=== PATIENT | female | born 1990 | race Caucasian/White ===

== ENCOUNTER 2019-01-30 04:08 | Inpatient (IN) | payer OTHER, SELFPAY ==
[2016-10-15 10:31] VITALS: BMI 21.9
[2019-01-30 04:49] VITALS: BMI 30.5
[2019-01-30 05:10] LABS: Absolute Lymphocyte Count 2.29 X10^3/ul (0.83-4.51); Absolute Neutrophil Count 15.2 X10^3/uL (2.0-7.7); Basophil# 0.04 X10^3/uL; Basophil% 0.2 % (0-1); Eosinophil# 0.07 X10^3/uL; Eosinophils% 0.4 % (0-5); Hematocrit 33.5 % (37-47); Hemoglobin 10.9 g/dl (12.0-15.0); Lymphocyte # 2.29 X10^3/ul (4.0); Lymphocyte % 12.4 % (19-41); Mean Corp Hgb Conc 32.5 g/gl (32-36); Mean Corpuscular Hgb 27.3 pg (27.0-32.0); Mean Platelet Vol. 11.2 fl (6.2-12.0); Monocyte# 0.71 X10^3/uL; Monocyte% 3.8 % (0-10); Neutrophil # 15.15 X10^3/uL (2.7-7.7); Neutrophil % 82.1 % (47-70); POSITIVE COUNT NO; POSITIVE DIFFERENTIAL NO; POSITIVE MORPHOLOGY NO; Platelet Count 230 K/mm3 (150-450); RBC Distribution Width CV 14.3 % (11.6-14.6); Red Blood Count 3.99 M/mm3 (4.2-5.4); White Blood Count 18.5 K/mm3 (4.4-11.0)
--- NOTE | 2019-01-30 05:45 | HP.PCM_ITS ---
History Date of Admission: 01/30/19 Final REBA: 02/12/19 Final REBA Source: LMP Gestational age: 38 Weeks and 1 Days History of this : This is a 28 year-old, G [1], P [0], at 38 weeks gestational age. Contractions started last night around 11pm every 10 minutes. They progressed to every 5 minutes and became more uncomfortable. Presented to L&D and was 5cm upon admission. Rapid progression to 10 cm and desire to push. Allergies No Known Allergies Allergy (Verified 10/15/16 10:34) Home Medications: Home Medications Acyclovir 1 tab PO TID 01/30/19 Prenatabs FA 1 tab PO DAILY 01/30/19 Smoking Status: Never smoker Alcohol: None Heart Tracin, minimal variability, accels, no decels Category 2 TOCO: every 2 minutes, strong Complete/100%/0 History Past Pregnancies: Past Pregnancies Delivery Date Name GA/Weeks Outcome Route Weight Gender Labor Length Anesthesia Delivery Location Provider FOB Labs: A positive Rubella Immune HBsAG negative RPR negative HIV negative GC/CT negative Urine tox screen negative GBS [id number] GCT 100, normal Expected Delivery Method: Spontaneous Vaginal Review of Systems Constitutional: Denies: Chills, Fever, Weight Change Cardiovascular: Denies: Chest Pain, Palpitations Respiratory: Denies: Cough, Shortness of breath at rest, Sputum production Gastrointestinal: Reports: Abdominal Pain Genitourinary: Denies: Dysuria Psychiatric: Denies: Anxiety, Depression, Homicidal Ideations, Suicidal Ideations Physical Exam General: Alert, Oriented x3 HEENT: Atraumatic, Normocephalic Cardiovascular: Regular rate, Regular Rhythm, No murmurs Lungs: Clear to auscultation, Normal air movement, No rhonchi, No wheeze Abdomen: Gravid ELECTRICAL INSTRUMENT REPAIRER: Normal external genitalia Estimated gestational size: Appropriate for gestational size Presentation: Cephalic Cervix Dilation (cm): 10 Station: 0 Effacement (%): 100 Assessment/Plan This is a 28 year-old, G [1], P [0], at 38 weeks gestational age. A:Active Labor Category 2 FHT Genital HSV P: 1) Patient complete and anesthesia at bedside for epidural. Patient undecided if she wants to proceed with procedure. Reviewed risks, benefits and alternatives and patient would like to continue without epidural. Instructed this would be the recommended time if she did want an epidural as once she starts pushing it will be more difficult to place. She voiced understanding and declines. Would like to continue with nitrous. 2) Admit to L&D, Routine orders, IV saline lock 3) Continuous EFM due to category 2 tracing and minimal variability 4) notified of patient status. 5) Declines LARC . 6) Patient taking HSV prophylaxis, denies any active lesions. 7) GBS negative.
[2019-01-30] MEDS: Lactated Ringers 1,000 ML 50 ML IV (05:55)
[2019-01-30] MEDS: Oxytocin 30 units/NS 500 ml 30 UNITS/500 ML IV.SOLN 334 UNITS IV (08:36)
[2019-01-30] MEDS: Oxytocin 30 units/NS 500 ml 30 UNITS/500 ML IV.SOLN 167 UNITS IV (09:06)
--- NOTE | 2019-01-30 09:13 | PCM.OPRPT ---
Problem List (1) Vaginal delivery Status: Acute (2) First degree perineal laceration Status: Acute (3) Laceration of labia minora Status: Acute (4) Genital HSV Status: Acute Vaginal Delivery Maternal Presentation: Active Labor Amniotic Membrane Rupture Type: Spontaneous Amniotic Fluid Description: Clear Final REBA: 02/12/19 Final REBA Source: LMP Gestational age: 38 Weeks and 1 Days Date of Procedure: 01/30/19 Pre-Operative Diagnosis: Active Labor Post-Operative Diagnosis: Surgery/ Procedure Performed: Spontaneous Vaginal Delivery Type of Anesthesia: Local with 1% lidocaine Description of Procedure: Nitrous oxide for pain relief. heart tones down to 70's, near delivery with +4 station. Nitrous discontinued. Positional changes and 02 via face mask applied. Topography Technician called to room for delivery. with no analgesia of viable male over 1st degree perineal laceration and bilateral labial lacerations. head delivered and body forthcoming. CAN x1, delivered through. Infant delivered and placed on maternal abdomen skin to skin. Mouth and nares suctioned for secretions, stimulated and strong cry. Cord clamped and cut after delayed cord clamping by FOB. APGARS 8,9. Placenta delivered with maternal effort, intact, 3 vessel cord via sri. Pitocin started for active 3rd stage management. Perineum inspected and revealed 1st degree perineal laceration repaired with Lidocaine and 3.0 vicryl and bilateral labial lacerations repaired with 3.0 vicryl. Patient tolerated well. Fundus firm. Vaginal sweep completed. Sponge and instrument count correct. Mom and baby stable. Family bonding well. Planning to breastfeed. notified of delivery. Presentation: Vertex Placental Delivery Description: Spontaneous Placenta Disposition: [facility] Cord Vessel Description: 3 Vessels Cord Gases drawn per routine: ABG, VBG Cord Entanglement: Around neck x 1, loose Estimated Blood Loss: 350 ml A gender: Male (1 minute): 8 (5 minute): 9 Episiotomy Description: None Laceration: Perineal Extension/lac - bilateral labial, 1st degree Medications given after delivery: IV Pitocin
--- NOTE | 2019-01-30 09:16 | OP.PCM_ITS ---
Problem List (1) Vaginal delivery Status: Acute (2) First degree perineal laceration Status: Acute (3) Laceration of labia minora Status: Acute (4) Genital HSV Status: Acute Vaginal Delivery Maternal Presentation: Active Labor Amniotic Membrane Rupture Type: Spontaneous Amniotic Fluid Description: Clear Final REBA: 02/12/19 Final REBA Source: LMP Gestational age: 38 Weeks and 1 Days Date of Procedure: 01/30/19 Pre-Operative Diagnosis: Active Labor Post-Operative Diagnosis: Surgery/ Procedure Performed: Spontaneous Vaginal Delivery Type of Anesthesia: Local with 1% lidocaine Description of Procedure: Nitrous oxide for pain relief. heart tones down to 70's, near delivery wi th +4 station. Nitrous discontinued. Positional changes and 02 via face mask applied. Oxyacetylene Torch Operator called to room for delivery. with no analgesia of viable male infant over 1st degree perineal laceration and bilateral labial lacerations. Infant head delivered and body forthcoming. CAN x1, delivered through. delivered and placed on maternal abdomen skin to skin. Mouth and nares suctioned for secretions, stimulated and strong cry. Cord clamped and cut after delayed cord clamping by FOB. APGARS 8,9. Placenta delivered with maternal effort, intact, 3 vessel cord via sri. Pitocin started for active 3rd stage management. Perineum inspected and revealed 1st degree perineal laceration repaired with Lidocaine and 3.0 vicryl and bilateral labial lacerations repaired with 3.0 vicryl. Patient tolerated well. Fundus firm. Vaginal sweep completed. Sponge and instrument count correct. Mom and baby stable. Family bonding well. Planning to breastfeed. notified of delivery. Presentation: Vertex Placental Delivery Description: Spontaneous Placenta Disposition: [facility] Cord Vessel Description: 3 Vessels Cord Gases drawn per routine: ABG, VBG Cord Entanglement: Around neck x 1, loose Estimated Blood Loss: 350 ml A gender: Male (1 minute): 8 (5 minute): 9 Episiotomy Description: None Laceration: Perineal Extension/lac - bilateral labial, 1st degree Medications given after delivery: IV Pitocin
[2019-01-30] MEDS: 0.9% Saline Lock 10 ML Syringe IV (10:03)
[2019-01-30] MEDS: Ibuprofen 600 MG Tablet PO ×2 (10:10→16:40)
[2019-01-30 12:00] VITALS: BP 121/75; PULSE 105; RESP 15; TEMP 36.9
[2019-01-30] MEDS: Acetaminophen 500 MG Tablet 1000 MG PO ×2 (13:00→21:56)
[2019-01-30 16:30] VITALS: BP 109/68; PULSE 87; RESP 16; TEMP 37.2
[2019-01-30 20:10] VITALS: BP 112/76; PULSE 85; RESP 18; TEMP 37.2; O2SAT 100
[2019-01-31 00:50] VITALS: BP 114/64; PULSE 87; RESP 20; TEMP 36.8
[2019-01-31 04:00] VITALS: BP 109/62; PULSE 79; RESP 18; TEMP 36.4
[2019-01-31] MEDS: Ibuprofen 600 MG Tablet PO ×2 (05:49→11:58)
[2019-01-31 06:04] LABS: Hematocrit 28.5 % (37-47); Hemoglobin 9.4 g/dl (12.0-15.0); Mean Corpuscular Hgb 27.8 pg (27.0-32.0); Mean Corpuscular Volume 84.3 fL (81-99); Mean Platelet Vol. 10.2 fl (6.2-12.0); Platelet Count 186 K/mm3 (150-450); RBC Distribution Width CV 14.6 % (11.6-14.6); Red Blood Count 3.38 M/mm3 (4.2-5.4); White Blood Count 18.1 K/mm3 (4.4-11.0)
[2019-01-31 06:15] LABS: Scan Indicated on CBC? Y/N NO
[2019-01-31 08:00] VITALS: BP 114/71; PULSE 82; RESP 18; TEMP 36.9
[2019-01-31] MEDS: Senna/Docusate Sodium 1 Tablet PO (09:44)
--- NOTE | 2019-01-31 11:45 | PCM.PN.OB ---
Patient Problems: Active and Suspected Problems Vaginal delivery (Acute) First degree perineal laceration (Acute) Laceration of labia minora (Acute) Genital HSV (Acute) Subjective: Doing well per patient and nursing staff. Ambulating and taking PO without difficulty. Voiding and passing flatus, taking stool softener. Pain controlled. without difficulty. Denies any headaches, vision changes, chest pain, SOB, increased vaginal bleeding or leg pain. Planning D/C home tomorrow. Baby to get circumcision today. - Physical Exam General: Alert, Oriented x3, Cooperative HEENT: Atraumatic, Normocephalic Neck: Trachea Midline Lungs: Clear to auscultation, Normal air movement, No rhonchi, No wheeze Cardiovascular: Regular rate, Regular Rhythm, No murmurs Abdomen: Bowel Sounds Present, Soft, - - Fundus firm 3 below U Extremities: No edema Neurological: Deep Tendon Reflexes 2+/4 and Symmetrical Psych/Mental Status: Normal Affect, Appropriate Vital Signs Temp Pulse Resp BP Pulse Ox 98.4 F 82 18 114/71 100 01/31/19 08:00 01/31/19 08:00 01/31/19 08:00 01/31/19 08:00 01/30/19 20:10 Oxygen Delivery Method Room Air Weight: 167 lb 3.2 oz Body Mass Index (BMI) 30.5 Intake and Output for Last 24 Hours 01/29/19 01/30/19 01/31/19 23:59 23:59 23:59 Output Total 1000 / 1000 Balance -1000 / -1000 Laboratory Tests Past 24 Hrs 01/31/19 05:43 WBC 18.1 H RBC 3.38 L Hgb 9.4 L Hct 28.5 L MCV 84.3 MCH 27.8 MCHC 33.0 RDW 14.6 RDW Differential 45.0 H Plt Count 186 MPV 10.2 Medical Necessity - Tobacco Use Smoking Status: Never smoker Assessment/Plan All Active Problems Vaginal delivery (Acute) First degree perineal laceration (Acute) Laceration of labia minora (Acute) Genital HSV (Acute) A:PPD #1 Blood loss anemia P: 1) Routine care. 2) Hgb decreased to 9.4, patient asymptomatic. Will start Ferrous Sulfate 325mg PO BID. 3) instructions reviewed. 4) Planning D/C home tomorrow.
[2019-01-31 14:00] VITALS: BP 115/69; PULSE 84; RESP 18; TEMP 36.8
[2019-01-31] MEDS: Ferrous Sulfate 325 MG Tablet PO ×2 (14:33→18:23)
[2019-01-31 20:31] VITALS: BP 120/77; PULSE 104; RESP 16; TEMP 36.8
[2019-02-01 01:18] VITALS: BP 112/75; PULSE 85; RESP 18; TEMP 36.8
[2019-02-01] MEDS: Ibuprofen 600 MG Tablet PO ×2 (01:18→09:53)
[2019-02-01 08:00] VITALS: BP 116/78; PULSE 80; RESP 16; TEMP 36.6
[2019-02-01] MEDS: Senna/Docusate Sodium 1 Tablet PO (09:53)
--- NOTE | 2019-02-01 10:05 | PCM.DCVAG ---
Discharge Diet: No Restrictions Discharge Activity: May Drive, May Shower May resume sexual activity in: 4-6 weeks Weight Bearing Status: Weight bearing as tolerated Additional Instructions: If you experience any of the following, contact your healthcare provider. Bleeding that soaks a pad every hour for 2 hours Fever 100.4 or higher Unrelieved incision or abdominal pain Swelling, redness, discharge or bleeding from your incision or episiotomy site Your incision begins to separate Problems urinating (including inability to urinate or burning while urinating). Visual changes Severe headache Flu-like symptoms Pain or redness in one of both of your breasts Pain, warmth, tenderness or swelling in your legs, especially the calf area Frequent nausea and vomiting Symptoms of depression or anxiety If you experience any of the following, call 911 or go to the nearest Emergency Room. Chest pain Problems breathing Seizure activity Partial or complete paralysis of a body part, slurred speech, weakness or drooping of the face, or a sudden inability to walk or hold your balance Allergies/Adverse Reactions: Allergies No Known Allergies Allergy (Verified 10/15/16 10:34) Medications to take at Discharge Prenatabs FA 1 tab PO DAILY 01/30/19 Ferrous Sulfate 325 mg PO DAILY #30 tab 02/01/19 The following prescriptions were given: Ferrous Sulfate 325 mg PO DAILY #30 tab Primary Care Physician: Nic Hill MD [Primary Care Provider] - Test Results: Test results from this visit will be discussed in further detail at your follow-up appointment, if applicable.
--- NOTE | 2019-02-01 10:06 | DCINST_ITS ---
Discharge Diet: No Restrictions Discharge Activity: May Drive, May Shower May resume sexual activity in: 4-6 weeks Weight Bearing Status: Weight bearing as tolerated Additional Instructions: If you experience any of the following, contact your healthcare provider. * Bleeding that soaks a pad every hour for 2 hours * Fever 100.4 or higher * Unrelieved incision or abdominal pain * Swelling, redness, discharge or bleeding from your incision or episiotomy site * Your incision begins to separate * Problems urinating (including inability to urinate or burning while urinating). * Visual changes * Severe headache * Flu-like symptoms * Pain or redness in one of both of your breasts * Pain, warmth, tenderness or swelling in your legs, especially the calf area * Frequent nausea and vomiting * Symptoms of depression or anxiety If you experience any of the following, call 911 or go to the nearest Emergency Room. * Chest pain * Problems breathing * Seizure activity * Partial or complete paralysis of a body part, slurred speech, weakness or drooping of the face, or a sudden inability to walk or hold your balance Allergies/Adverse Reactions: Allergies No Known Allergies Allergy (Verified 10/15/16 10:34) Medications to take at Discharge Prenatabs FA 1 tab PO DAILY 01/30/19 Ferrous Sulfate 325 mg PO DAILY #30 tab 02/01/19 The following prescriptions were given: Ferrous Sulfate 325 mg PO DAILY #30 tab Primary Care Physician: Nic Hill MD [Primary Care Provider] - Test Results: Test results from this visit will be discussed in further detail at your follow- up appointment, if applicable.
--- NOTE | 2019-02-01 10:06 | PCM.PN.OB ---
Patient Problems: Active and Suspected Problems Vaginal delivery (Acute) First degree perineal laceration (Acute) Laceration of labia minora (Acute) Genital HSV (Acute) Subjective: No complaints - Physical Exam General: Alert, Oriented x3 Abdomen: Soft, Non Tender, Non-Distended - ff mid & below umb Extremities: No Calf Tenderness Neurological: Cranial nerves II-XII grossly intact Vital Signs Temp Pulse Resp BP Pulse Ox 98.3 F 85 18 112/75 100 02/01/19 01:18 02/01/19 01:18 02/01/19 01:18 02/01/19 01:18 01/30/19 20:10 Oxygen Delivery Method Room Air Weight: 167 lb 3.2 oz Body Mass Index (BMI) 30.5 Intake and Output for Last 24 Hours 01/30/19 01/31/19 02/01/19 23:59 23:59 23:59 Output Total 1000 / 1000 Balance -1000 / -1000 Medical Necessity - Tobacco Use Smoking Status: Never smoker Assessment/Plan All Active Problems Vaginal delivery (Acute) First degree perineal laceration (Acute) Laceration of labia minora (Acute) Genital HSV (Acute) PPD#2 Anemia - d/c home on iron
== END 2019-02-01 11:40 | disposition home or self-care (01) | DRG 807 ==
PROVIDERS: Advanced Practice Midwife; Admitting Provider Obstetrics & Gynecology; Visit Provider Obstetrics & Gynecology
DX: O98.32 Other infections with a predominantly sexual mode of transmission complicating childbirth (principal); A60.00 Herpesviral infection of urogenital system, unspecified; O69.81X0 Labor and delivery complicated by cord around neck, without compression, not applicable or unspecified; O90.81 Anemia of the puerperium; D50.0 Iron deficiency anemia secondary to blood loss (chronic); O70.0 First degree perineal laceration during delivery; Z3A.38 38 weeks gestation of pregnancy; Z37.0 Single live birth
CPT/HCPCS: 59025; 59050; 85025; 85027; 86850; 86900; 99218; J7120; A4216; G0378

== ENCOUNTER 2021-01-13 00:30 | Inpatient (IN) | payer OTHER, SELFPAY ==
[2021-01-13] VITALS (24 sets, daily range): BP systolic 95–144; BP diastolic 56–78; PULSE 73–93; RESP 14–18; TEMP 36.1–37; O2SAT 88–100; BMI 32.3
[2021-01-13] MEDS: Lactated Ringers 1,000 ML 50 ML IV (00:45)
[2021-01-13 00:53] LABS: Absolute Lymphocyte Count 2.97 X10^3/uL (0.83-4.51); Basophil# 0.06 X10^3/uL; Basophil% 0.5 % (0-1); Eosinophil# 0.13 X10^3/uL; Hematocrit 36.7 % (37-47); Hemoglobin 11.8 g/dL (12.0-15.0); Lymphocyte # 2.97 X10^3/ul (0.83-4.51); Lymphocyte % 22.6 % (19-41); Mean Corp Hgb Conc 32.2 g/dL (32-36); Mean Corpuscular Hgb 27.9 pg (27.0-32.0); Mean Corpuscular Volume 86.8 fL (81-99); Monocyte# 0.79 X10^3/uL; NRBC Flagged by Analyzer 0 % (0-5); Neutrophil # 9.02 X10^3/uL (2.7-7.7); Neutrophil % 68.5 % (47-70); Platelet Count 254 K/mm3 (150-450); RBC Distribution Width CV 15.2 % (11.6-14.6); RBC Distribution Width SD 47.2 fl (35.1-43.9); Red Blood Count 4.23 M/mm3 (4.2-5.4); White Blood Count 13.2 K/mm3 (4.4-11.0)
--- NOTE | 2021-01-13 01:08 | HP.PCM.OB_ITS ---
HPI - General General Date of Admission: 01/13/21 HPI Narrative MAGDALENA LACY, is a 30 F who presents at 40w2d in active labor. Presents with contractions every 4 minutes that started around 2245. No leakage of fluid or vaginal bleeding. complicated by genital herpes, prophylaxis since 36 weeks and no outbreaks during . [facility] Home Medications Prenatabs FA 1 tab PO DAILY 01/30/19 [History Last Taken 01/29/19] acyclovir 200 mg PO TID 01/13/21 [History Last Taken 01/12/21 21:00] Allergy/AdvReac Type Severity Reaction Status Date / Time No Known Allergies Allergy Verified 01/13/21 02:47 Surgical History (Updated 01/13/21 @ 02:53 by Luz Wade) History of surgery Social History Smoking Status: Never smoker History Elective abortions Hx Para 1 Spontaneous abortions Hx # Term Pregnancies Ectopic pregnancies Hx # Pregnancies Multiple births # of living children NST FHR Rate Baby A Baseline: 125 Variability:: Minimal Accelerations:: 15 x 15 Decelerations:: None FHR Category:: Category II Uterine Activity:: Every 2 minutes, strong ROS Constitutional Constitutional: Reports systems reviewed and no addt'l complaints, except as documented; Denies headache(s) Eyes Eyes: Denies acute decrease in peripheral vision, blurry vision or change in vision ENT HEENT: Reports systems reviewed and no addt'l complaints, except as documented Cardiovascular Cardiovascular: Denies chest pain or dizziness Respiratory/Chest Respiratory/Chest: Denies cough, dyspnea, dyspnea on exertion, shortness of breath at rest or shortness of breath with exertion Gastrointestinal Gastrointestinal: Denies abdominal pain, diarrhea, nausea or vomiting Genitourinary Genitourinary: Denies abdominal discomfort or movement Musculoskeletal Musculoskeletal: Denies limited range of motion Integumentary Integumentary: Reports systems reviewed and no addt'l complaints, except as documented Neurologic Neurologic: Reports systems reviewed and no addt'l complaints, except as documented Psychiatric Psychiatric: Reports systems reviewed and no addt'l complaints, except as documented Endocrine Endocrinology: Reports systems reviewed and no addt'l complaints, except as doc umented Hematologic/Lymphatic Hematologic/Lymphatic: Reports systems reviewed and no addt'l complaints, except as documented Allergic/Immunologic Allergic/Immunologic: Reports systems reviewed and no addt'l complaints, except as documented Vital Signs Vital Signs Vital Signs: 01/13/21 00:37 01/13/21 00:38 Temperature 97.0 F L Temperature Source Temporal Pulse Rate 82 Blood Pressure 121/78 H BP Systolic 121 BP Diastolic 78 Pulse Ox 98 Physical Exam Narrative GBS negative RPR negative Rubella negative HBsAG negative HepC negative A positive HIV negative Tox screen negative GC/CT negative 1hr GCT abnormal, 3hr GTT normal Const alert and oriented x3 General Appearance: cooperative Orientation / Consciousness: awake, oriented to person, oriented to place and oriented to time Exam Limitations: no limitations HEENT normocephalic Head and Scalp: normal to inspection, normocephalic and atraumatic Face and Sinus: normal facial exam Eyes General Eye: normal appearance of both eyes Neck full ROM Chest Chest: symmetrical chest wall rise Resp normal respiratory effort and normal air movement Auscultation: clear to auscultation bilaterally Cardio regular rate, regular rhythm, S1 normal heart sound, S2 normal heart sound, no murmurs, no rub, no gallops and no clicks GI normal to inspection, nondistended, normoactive bowel sounds and non-tender appearance of the vagina normal Bladder / Kidney Exam: no CVA tenderness Manual OB Exam: estimated gestational size appropriate, presentation cephalic, dilated 6, effaced 90, station -1 and other AROM for moderate amount of clear fluid Back/Spine normal ROM Extremity normal to inspection and full ROM Skin no rashes or lesions noted Neuro oriented x3, CN's II-XII intact bilaterally and moves all extremities Sensorium / Orientation: awake, alert and oriented to person Motor Exam: clonus absent Deep Tendon Reflexes: Rt Patellar (L4): 2+ and Lt Patellar (L4): 2+ Assessment & Plan (1) Active labor at term: (2) Genital HSV: PLAN: 1) Admit to labor and delivery 2) IV and routine labs 3) COVID 19 test 4) GBS negative 5) Planning unmedicated , may have pain management upon request 6) Continuous EFM 7) notified of patient status and admission
[2021-01-13] MEDS: 0.9% Saline Lock 10 ML Syringe IV ×2 (01:23→04:16)
[2021-01-13] MEDS: Oxytocin 30 units/NS 500 ml 30 UNITS/500 ML IV.SOLN 334 UNITS IV (01:59)
--- NOTE | 2021-01-13 03:18 | EX.PCM.OBRPT ---
Assessment & Plan (1) Vaginal delivery: (2) Genital HSV: (3) Second degree perineal laceration: Vaginal Delivery Maternal Presentation Maternal Presentation: Active Labor Operative Information Date of Procedure: 01/13/21 Pre-Operative Diagnosis: Active Labor at Term Post-Operative Diagnosis: Type of Anesthesia: Local with 1% Lidocaine Estimated Blood Loss: 300 ml Findings Description of Procedure: Progressed to completed with strong urge to push. Unmedicated of viable female infant over second degree perineal laceration. APGARS 8,9. Infant head delivered ZACHARY and body forthcoming with maternal effort. Delivered and placed on maternal abdomen, strong cry. Mouth and nares suctioned for secretions. Pitocin started for active 3rd stage management. Placenta delivered with expression, intact, 3 vessel. Perineum inspected and revealed second degree perineal laceration, repaired with 1% lidocaine and 3.0 vicryl. Well approximated and hemostasis achieved. Fundus firm, vaginal sweep completed by me. sponge and instrument count correct, EBL 300ml. Mom and baby stable. initiated. Family bonding well. notified of delivery. Presentation: Vertex and ZACHARY Amniotic Membrane Rupture Type: Artificial Amniotic Fluid Description: Clear Placental Delivery Description: Expressed Placenta Disposition: [facility] Cord Vessel Description: 3 Vessels Cord Entanglement: None A Gender: Female (1 minute): 8 (5 minute): 9 Delayed Cord Clamping: Yes Post Vaginal Delivery Medications Given After Delivery: IV Pitocin Episiotomy Description: None Laceration: Perineal Extension/lac and 2nd degree Complication Complications: None
[2021-01-13] MEDS: Ibuprofen 600 MG Tablet PO ×4 (04:16→23:48)
[2021-01-13] MEDS: Acyclovir 200 MG Capsule PO ×3 (06:42→21:33)
[2021-01-13] MEDS: Acetaminophen 500 MG Tablet 1000 MG PO ×2 (08:33→21:02)
[2021-01-13] MEDS: Prenatal Vits Tablet 1 TABLET PO (12:34)
--- NOTE | 2021-01-13 19:47 | NURSING ---
report given to sang WHYTE. that rn to take over for this shift.
[2021-01-14 03:24] VITALS: BP 110/75; PULSE 88; RESP 18; TEMP 36.3
[2021-01-14 03:25] VITALS: BP 110/75; PULSE 88
[2021-01-14] MEDS: Acyclovir 200 MG Capsule PO (05:57)
[2021-01-14 06:06] LABS: Hematocrit 31.8 % (37-47); Mean Corp Hgb Conc 31.4 g/dL (32-36); Mean Corpuscular Volume 85.9 fL (81-99); Mean Platelet Vol. 10.7 fl (6.2-12.0); Platelet Count 197 K/mm3 (150-450); RBC Distribution Width CV 15.1 % (11.6-14.6); RBC Distribution Width SD 47.3 fl (35.1-43.9); White Blood Count 14.2 K/mm3 (4.4-11.0)
[2021-01-14] MEDS: Ibuprofen 600 MG Tablet PO (08:36)
[2021-01-14] MEDS: Senna/Docusate Sodium 1 Tablet PO (08:37)
[2021-01-14 09:29] VITALS: BP 123/61; PULSE 86
[2021-01-14 09:33] VITALS: BP 126/61; PULSE 86; RESP 18; TEMP 36.5
--- NOTE | 2021-01-14 12:13 | PCM.DC ---
Discharge Instructions Diet Discharge Diet: No restrictions Activity Discharge Activity: Return to Normal Activity, May Drive, May Shower and May Take a Tub Bath May resume sexual activity in: 6 weeks Weight Bearing Status: Full weight bearing Dressing / Incision Call your doctor if you observe: Fever of 101 or Higher, Inability to urinate, Inability to have a bowel movement, Using more than one pad per hour, Shortness of breath, Chest pain, Increased palpitations (irregular heartbeat), Calf discomfort and Uncontrolled pain Follow Up Care Please Follow Up With: Amy Lerner When: 2 week virtual visit and 6 week visit Test Results: Test results from this visit will be discussed in further detail at your follow-up appointment, if applicable. Discharge Plan Admission Admit Date/Time: 01/13/21 00:30 Primary Reason for Your Visit: Vaginal Delivery Attending Provider: Amy Lerner Primary Care Provider: Nic Hill Instructions Patient Instructions: After a Vaginal , at Home Discharge Orders/Prescriptions Prescriptions: New acetaminophen 500 mg Tablet 500 mg PO Q8H PRN PRN (Reason: pain) Qty: 30 RF: 0 ibuprofen 600 mg Tablet 600 mg PO Q6H PRN PRN (Reason: Pain Score 1-10) Qty: 30 RF: 0 Continued Prenatabs FA 1 tab PO DAILY RF: 0 acyclovir 200 mg Capsule 200 mg PO TID RF: 0 Referrals / Follow Up: Nic Hill MD [Primary Care Provider] - Disposition Disposition (needs filled in before D/C Order can be placed): Home, self care
--- NOTE | 2021-01-14 12:21 | PCM.PROGNOTE ---
Subjective Subjective: Doing well per patient and nursing staff. Ambulating and taking PO without difficulty. without difficulty. Pain controlled. Voiding and passing flatus. Denies any headache, visual changes, chest pain, shortness of breath, increased vaginal bleeding, or leg pain. Planning D/C home today. Objective Data Objective Data Vital Signs: Vital Signs Temp Pulse Resp BP Pulse Ox 97.7 F L 86 18 126/61 H 97 01/14/21 09:33 01/14/21 09:33 01/14/21 09:33 01/14/21 09:33 01/13/21 04:29 Oxygen Delivery Method Room Air Weight: 176 lb 9.6 oz Body Mass Index (BMI) 32.3 Intake & Output: Intake and Output for Last 24 Hours 01/12/21 01/13/21 01/14/21 23:59 23:59 23:59 Intake Total 579.82 / 579.82 Output Total 1100 / 1100 Balance -520.18 / -520.18 Lab / Micro Data Result Diagrams: 01/14/21 05:55 Labs: Laboratory Results - last 24 hr 01/14/21 05:55 WBC 14.2 H RBC 3.70 L Hgb 10.0 L Hct 31.8 L MCV 85.9 MCH 27.0 MCHC 31.4 L RDW Std Deviation 47.3 H RDW Coeff of Ela 15.1 H Plt Count 197 MPV 10.7 Micro: Microbiology 01/13/21 00:50 Mucosa - Nose SARS-CoV-2 Antigen (Rapid) - Final Physical Exam Const alert and oriented x3 General Appearance: cooperative Orientation / Consciousness: awake, oriented to person, oriented to place and oriented to time Exam Limitations: no limitations HEENT normocephalic Head and Scalp: normal to inspection, normocephalic and atraumatic Face and Sinus: normal facial exam Eyes General Eye: normal appearance of both eyes Neck full ROM Chest Chest: symmetrical chest wall rise Resp normal respiratory effort and normal air movement Auscultation: clear to auscultation bilaterally Cardio regular rate, regular rhythm, S1 normal heart sound, S2 normal heart sound, no murmurs, no rub, no gallops and no clicks GI normal to inspection, nondistended, normoactive bowel sounds and non-tender GI Narrative: Fundus firm 2 below U appearance of the vagina normal Bladder / Kidney Exam: no CVA tenderness Back/Spine normal ROM Extremity normal to inspection and full ROM Skin no rashes or lesions noted Neuro oriented x3, CN's II-XII intact bilaterally and moves all extremities Sensorium / Orientation: awake, alert and oriented to person Motor Exam: clonus absent Deep Tendon Reflexes: Rt Patellar (L4): 2+ and Lt Patellar (L4): 2+ Assessment & Plan Assessment/Plan (1) Second degree perineal laceration: (2) Vaginal delivery: PLAN: 1) Routine PP and care 2) Pain control with OTC Tylenol and Ibuprofen 3) Follow up in 2 weeks and 6 weeks 4) D/C home today.
== END 2021-01-14 12:33 | disposition home or self-care (01) | DRG 807 ==
LOC: WPOUT 00:33 → WP 00:33
PROVIDERS: Admitting Provider Advanced Practice Midwife; Referring Provider Advanced Practice Midwife; Visit Provider Advanced Practice Midwife
DX: O98.32 Other infections with a predominantly sexual mode of transmission complicating childbirth (principal); Z37.0 Single live birth; A60.00 Herpesviral infection of urogenital system, unspecified; O70.1 Second degree perineal laceration during delivery; Z3A.40 40 weeks gestation of pregnancy
CPT/HCPCS: 59025; 59050; 85025; 85027; 86850; 86900; 86901; 87426; 99218; J7120; A4216; G0378

== ENCOUNTER 2024-11-29 11:46 | Inpatient (IN) | payer OTHER, SELFPAY ==
[2024-11-29] VITALS (42 sets, daily range): BP systolic 98–134; BP diastolic 56–90; PULSE 80–117; RESP 15–16; TEMP 36.3–36.6; O2SAT 81–100; BMI 30.9
[2024-11-29 11:17] LABS: ROM Internal Control Test YES-OK TO RESULT pt. (Internal QC)
[2024-11-29 11:19] LABS: ROM Patient Test POSITIVE (Negative); Record Kit Lot#, ROM+ K3294
[2024-11-29] MEDS: Lactated Ringers 1,000 ML 50 ML IV (12:00)
[2024-11-29 12:40] LABS: Absolute Lymphocyte Count 2.94 X10^3/uL (0.83-4.51); Absolute Neutrophil Count 11.6 X10^3/uL (2.0-7.7); Basophil# 0.07 X10^3/uL; Basophil% 0.4 % (0-1); Eosinophil# 0.11 X10^3/uL; Eosinophils% 0.7 % (0-5); Hematocrit 37.8 % (37-47); Hemoglobin 12.5 g/dL (12.0-15.0); Lymphocyte # 2.94 X10^3/ul (0.83-4.51); Lymphocyte % 18.8 % (19-41); Mean Corp Hgb Conc 33.1 g/dL (32-36); Mean Corpuscular Hgb 29.5 pg (27.0-32.0); Mean Corpuscular Volume 89.2 fL (81-99); Mean Platelet Vol. 10.2 fl (6.2-12.0); Monocyte# 0.82 X10^3/uL; Monocyte% 5.2 % (0-10); NRBC Flagged by Analyzer 0 % (0-5); Neutrophil # 11.56 X10^3/uL (2.7-7.7); Neutrophil % 74.1 % (47-70); Platelet Count 308 K/mm3 (150-450); RBC Distribution Width CV 13.9 % (11.6-14.6); RBC Distribution Width SD 44.9 fl (35.1-43.9); Red Blood Count 4.24 M/mm3 (4.2-5.4); White Blood Count 15.6 K/mm3 (4.4-11.0)
[2024-11-29] MEDS: Oxytocin 15 Units/NS 250ml 15 UNITS/250 ML IV.SOLN 2 UNITS IV (12:47)
[2024-11-29 16:03] LABS: Syphilis Antibodies Nonreactive (Nonreactive)
--- NOTE | 2024-11-29 17:29 | PCM.HP.OB ---
HPI - General General Date of Admission: 11/29/24 HPI Narrative MAGDALENA LACY, is a 34 F who presents with at 39w0d with spontaneous rupture of membranes about 10pm. No vaginal bleeding, good movement, irregular mild contractions. Maternal Data Information REBA Calculator Estimated Delivery Date Method Current WG Current Estimate 12/06/24 Manual 39w 1d 39w0d at admission PFSH PFSH Home Medications ?Medication ?Instructions ?Recorded ?Last Taken ?Type Prenatabs FA 1 tab PO DAILY Check with primary 01/30/19 11/28/24 History doctor acyclovir 200 mg capsule 200 mg PO TID herpes 01/13/21 11/28/24 History acetaminophen 500 mg tablet 500 mg PO Q8H PRN PRN pain #30 tabs 01/14/21 Unknown Rx Held on 11/29/24. Instructions: Order Completed Allergy/AdvReac Type Severity Reaction Status Date / Time No Known Allergies Allergy Verified 11/29/24 12:26 Surgical History History of surgery Social History Smoking Status: Never smoker History Elective abortions Hx Para 2 Spontaneous abortions Hx # Term Pregnancies Ectopic pregnancies Hx # Pregnancies Multiple births # of living children NST FHR Rate Baby A Baseline: 140 Variability:: Moderate Accelerations:: 15 x 15 Decelerations:: None FHR Category:: Category I Uterine Activity:: Irregular ROS Constitutional Constitutional: Reports systems reviewed and no addt'l complaints, except as documented; Denies headache(s) Eyes Eyes: Denies acute decrease in peripheral vision, blurry vision or change in vision ENT HEENT: Reports systems reviewed and no addt'l complaints, except as documented Cardiovascular Cardiovascular: Denies chest pain or dizziness Respiratory/Chest Respiratory/Chest: Denies cough, dyspnea, dyspnea on exertion, shortness of breath at rest or shortness of breath with exertion Gastrointestinal Gastrointestinal: Denies abdominal pain, diarrhea, nausea or vomiting Genitourinary Genitourinary: Denies abdominal discomfort Musculoskeletal Musculoskeletal: Denies limited range of motion Integumentary Integumentary: Reports systems reviewed and no addt'l complaints, except as documented Neurologic Neurologic: Reports systems reviewed and no addt'l complaints, except as documented Psychiatric Psychiatric: Reports systems reviewed and no addt'l complaints, except as documented Endocrine Endocrinology: Reports systems reviewed and no addt'l complaints, except as documented Hematologic/Lymphatic Hematologic/Lymphatic: Reports systems reviewed and no addt'l complaints, except as documented Allergic/Immunologic Allergic/Immunologic: Reports systems reviewed and no addt'l complaints, except as documented Vital Signs Vital Signs Vital Signs: 11/29/24 10:32 11/29/24 10:32 11/29/24 10:32 Temperature Temperature Source Pulse Rate 116 H 117 H Respiratory Rate Blood Pressure 129/90 H BP Systolic 129 BP Diastolic 90 Pulse Ox 11/29/24 10:32 11/29/24 10:32 11/29/24 10:32 Temperature Temperature Source Temporal Pulse Rate Respiratory Rate 16 Blood Pressure BP Systolic BP Diastolic Pulse Ox 100 11/29/24 10:32 11/29/24 11:57 11/29/24 11:57 Temperature 97.5 F L Temperature Source Temporal Pulse Rate Respiratory Rate 16 Blood Pressure BP Systolic BP Diastolic Pulse Ox 11/29/24 11:57 11/29/24 11:58 11/29/24 11:58 Temperature 97.6 F L Temperature Source Pulse Rate 114 H Respiratory Rate Blood Pressure 126/71 H BP Systolic 126 BP Diastolic 71 Pulse Ox 11/29/24 11:58 11/29/24 11:59 11/29/24 11:59 Temperature Temperature Source Pulse Rate 103 H Respiratory Rate Blood Pressure BP Systolic BP Diastolic Pulse Ox 81 99 11/29/24 13:05 11/29/24 13:05 11/29/24 13:06 Temperature Temperature Source Temporal Pulse Rate 116 H Respiratory Rate Blood Pressure 122/84 H BP Systolic 122 BP Diastolic 84 Pulse Ox 11/29/24 13:06 11/29/24 13:06 11/29/24 13:58 Temperature 97.7 F L Temperature Source Pulse Rate Respiratory Rate 16 Blood Pressure 115/70 BP Systolic 115 BP Diastolic 70 Pulse Ox 11/29/24 13:58 11/29/24 13:58 11/29/24 13:58 Temperature Temperature Source Temporal Pulse Rate 101 H Respiratory Rate 16 Blood Pressure BP Systolic BP Diastolic Pulse Ox 11/29/24 13:58 11/29/24 15:10 11/29/24 15:10 Temperature 97.4 F L Temperature Source Pulse Rate 91 Respiratory Rate Blood Pressure 126/79 H BP Systolic 126 BP Diastolic 79 Pulse Ox 11/29/24 15:10 11/29/24 15:10 11/29/24 15:10 Temperature Temperature Source Temporal Pulse Rate Respiratory Rate 16 Blood Pressure BP Systolic BP Diastolic Pulse Ox 94 11/29/24 15:10 11/29/24 16:16 11/29/24 16:16 Temperature 97.8 F Temperature Source Temporal Pulse Rate Respiratory Rate Blood Pressure 134/75 H BP Systolic 134 BP Diastolic 75 Pulse Ox 11/29/24 16:16 11/29/24 16:16 11/29/24 16:16 Temperature 97.5 F L Temperature Source Pulse Rate 82 Respiratory Rate 16 Blood Pressure BP Systolic BP Diastolic Pulse Ox 11/29/24 16:17 11/29/24 16:17 11/29/24 17:26 Temperature Temperature Source Pulse Rate 81 Respiratory Rate Blood Pressure 117/71 BP Systolic 117 BP Diastolic 71 Pulse Ox 98 11/29/24 17:26 11/29/24 17:26 Temperature Temperature Source Pulse Rate 87 Respiratory Rate Blood Pressure BP Systolic BP Diastolic Pulse Ox 98 Weight Weight: 169 lb 1.513 oz Body Mass Index (BMI) 30.9 Physical Exam Const alert and oriented x3 General Appearance: cooperative Orientation / Consciousness: awake, oriented to person, oriented to place and oriented to time Exam Limitations: no limitations HEENT normocephalic Head and Scalp: normal to inspection, normocephalic and atraumatic Face and Sinus: normal facial exam Eyes General Eye: normal appearance of both eyes Neck full ROM Chest Chest: symmetrical chest wall rise Resp normal respiratory effort and normal air movement Auscultation: clear to auscultation bilaterally Cardio regular rate, regular rhythm, S1 normal heart sound, S2 normal heart sound, no murmurs, no rub, no gallops and no clicks GI normal to inspection, nondistended, normoactive bowel sounds and non-tender appearance of the vagina normal Bladder / Kidney Exam: no CVA tenderness Back/Spine normal ROM Extremity normal to inspection and full ROM Skin no rashes or lesions noted Neuro oriented x3 and moves all extremities Sensorium / Orientation: awake, alert and oriented to person Motor Exam: clonus absent Deep Tendon Reflexes: Rt Patellar (L4): 2+ and Lt Patellar (L4): 2+ Labs Labs Labs: Blood Type A POSITIVE Antibody Screen NEGATIVE Hct 34.2 % (37-47) L Hgb 11.5 g/dL (12.0-15.0) L Syphilis Total Ab Nonreactive (Nonreactive) Rhogam given: No GBS negative HIV negative HepC negative HBsAG negative GC/CT negative Rubella immune A positive Assessment & Plan (1) PROM (premature rupture of membranes): (2) 39 weeks gestation of : (3) History of herpes genitalis: (4) Anemia affecting : PLAN: Plan 1) Admit to labor and delivery. ROM plus positive. Reviewed active vs expectant management. Would like to proceed with pitocin and active management. 2) Routine labs 3) Continuous EFM 4) Pain management upon request 5) [facility] physician and notified of patient status, above assessment, and plan.
--- NOTE | 2024-11-29 17:29 | EX.PCM.OBVAG ---
Assessment & Plan (1) Vaginal delivery: (2) Lactating mother: Maternal Data Information REBA Calculator Estimated Delivery Date Method Current WG Current Estimate 12/06/24 Manual 39w 1d 39w0d at admission Vaginal Delivery Maternal Presentation Maternal Presentation: Spontaneous Rupture of Membranes Vaginal Delivery Information Procedure Performed: Spontaneous Vaginal Delivery Date of Procedure: 11/29/24 Pre-Procedure Diagnosis: PROM Post-Procedure Diagnosis: Type of anesthesia: None Estimated Blood Loss: 100ml Time of Delivery: 17:18 Findings Description of procedure: Progressed to complete with urge to push. Unmedicated. of viable male infant over intact perineum . APGARS 8,9 respectively. Infant head delivered with body immediately forthcoming. CANx1 loose, delivered through. Placed on maternal abdomen, strong cry. Mouth and nares suctioned for secretions. Pitocin started for active 3rd stage management. Cord doubly clamped and cut by FOB after pulsations ceased, delayed cord clamping. Placenta delivered intact via gonzalez, 3 vessel cord intact. Perineum inspected and revealed intact. Fundus firm and hemostasis achieved. EBL 100ml. Mom and baby stable, planning to breastfeed. Family bonding well. notified of delivery. Presentation: Vertex and ZACHARY Amniotic Membrane Rupture Type: Spontaneous Amniotic Fluid Description: Clear Placental Delivery Description: Spontaneous Placenta Disposition: Other (To patient) Specimen collected: No Cord Vessel Description: 3 Vessels Cord Entanglement: Around neck x 1, loose Nuchal Cord Compression: Without compression A Gender: Male (1 minute): 8 (5 minute): 9 Delayed Cord Clamping: Yes Blow Pit Helper supervisor home restoration service: No Post Vaginal Deli Medications given after delivery: IV Pitocin and IM Pitocin Episiotomy Description: None Laceration: None Complication Complications: No
[2024-11-29] MEDS: Oxytocin 15 Units/NS 250ml 15 UNITS/250 ML IV.SOLN 83 UNITS IV (17:55)
[2024-11-29] MEDS: Ibuprofen 600 MG Tablet PO (18:43)
[2024-11-30] MEDS: Ibuprofen 600 MG Tablet PO (01:02)
[2024-11-30 04:05] VITALS: BP 110/60; PULSE 80; RESP 20; TEMP 36.3; O2SAT 97
[2024-11-30 04:25] LABS: Absolute Lymphocyte Count 2.78 X10^3/uL (0.83-4.51); Absolute Neutrophil Count 16.1 X10^3/uL (2.0-7.7); Basophil# 0.05 X10^3/uL; Basophil% 0.2 % (0-1); Eosinophil# 0.06 X10^3/uL; Eosinophils% 0.3 % (0-5); Hematocrit 34.2 % (37-47); Hemoglobin 11.5 g/dL (12.0-15.0); Lymphocyte # 2.78 X10^3/ul (0.83-4.51); Lymphocyte % 13.6 % (19-41); Mean Corp Hgb Conc 33.6 g/dL (32-36); Mean Corpuscular Hgb 29.1 pg (27.0-32.0); Mean Corpuscular Volume 86.6 fL (81-99); Mean Platelet Vol. 9.8 fl (6.2-12.0); Monocyte# 1.35 X10^3/uL; Monocyte% 6.6 % (0-10); NRBC Flagged by Analyzer 0 % (0-5); Neutrophil # 16.05 X10^3/uL (2.7-7.7); Neutrophil % 78.5 % (47-70); Platelet Count 292 K/mm3 (150-450); RBC Distribution Width CV 13.6 % (11.6-14.6); RBC Distribution Width SD 43.2 fl (35.1-43.9); Red Blood Count 3.95 M/mm3 (4.2-5.4); White Blood Count 20.5 K/mm3 (4.4-11.0)
--- NOTE | 2024-11-30 06:26 | PCM.PN.BLA ---
Progress Note pain well controlled, average lochia Physical Exam Const alert and no apparent distress Narrative: Fundus firm, below umbilicus. Assessment & Plan Assessment/Plan (1) Vaginal delivery: PLAN: Plan PPD#1 doing well desires d/c home today if ok w/ peds routine PP care
--- NOTE | 2024-11-30 06:27 | PCM.DC ---
Discharge Instructions DC O2, CPAP, BIPAP needs Home O2 Discharge instructions: No Dressing / Incision May resume sexual activity in: 6 weeks Follow Up Care Please Follow Up With: Amy Lerner CNM When: Follow up with our office in 1-2 and 6 weeks or as needed. Call [phone] or send a [employer] message Test Results: Test results from this visit will be discussed in further detail at your follow-up appointment, if applicable. Discharge Plan Admission Admit Date/Time: 11/29/24 11:40 Primary Reason for Your Visit: Vaginal delivery Attending Provider: Amy Lerner Primary Care Provider: Nic Hill Discharge Orders/Prescriptions Prescriptions: No Action Prenatabs FA 1 tab PO DAILY acyclovir 200 mg Capsule 200 mg PO TID acetaminophen 500 mg Tablet 500 mg PO Q8H PRN PRN (Reason: pain) Qty: 30 0RF Referrals / Follow Up: Nic Hill MD [Primary Care Provider] - Disposition Disposition (needs filled in before D/C Order can be placed): Home, Self Care
[2024-11-30 08:44] VITALS: BP 122/77; PULSE 101; RESP 16; TEMP 36.7
[2024-11-30] MEDS: Acetaminophen 500 MG Tablet 1000 MG PO (09:02)
[2024-11-30 12:49] VITALS: BP 96/78; PULSE 93; RESP 18; TEMP 36.8
[2024-11-30 18:20] VITALS: BP 104/67; PULSE 94; RESP 16; TEMP 36.6; O2SAT 98
== END 2024-11-30 18:20 | disposition home or self-care (01) | DRG 806 ==
LOC: WPOUT 11-30 10:15
PROVIDERS: Admitting Provider Advanced Practice Midwife; Referring Provider Advanced Practice Midwife; Visit Provider Advanced Practice Midwife
DX: O42.92 Full-term premature rupture of membranes, unspecified as to length of time between rupture and onset of labor (principal); Z37.0 Single live birth; O98.32 Other infections with a predominantly sexual mode of transmission complicating childbirth; A60.9 Anogenital herpesviral infection, unspecified; O69.81X0 Labor and delivery complicated by cord around neck, without compression, not applicable or unspecified; Z79.899 Other long term (current) drug therapy; Z3A.39 39 weeks gestation of pregnancy
CPT/HCPCS: 59025; 59050; 84112; 85025; 86780; 86850; 86900; 86901; 99221; G0378